=== PATIENT | female | born 1980 | race Caucasian/White ===

== ENCOUNTER 2016-08-09 23:20 | Emergency (ER) | payer SELFPAY ==
[~2016-08-09 23:20] MED LIST: BACTRIM DS TAB1 EACH PO; NORCO 5-325 TA1 EACH PO; PROAIR RESPICL90 MCG IH; ZOFRAN4 MG PO
--- NOTE | 2016-09-08 18:50 | ER ---
ADMIT: 08/09/2016 RM/LOC: ER [facility] MR#: [id number] [address] [address] [address] [place] [id number] Emergency Room Report SEX: F AGE: 36 : 1980 DATE: 08/09/2016 ADDENDUM: This patient comes to the ER because she has asthma and is having an asthma attack. She ran out of her albuterol inhaler. On physical exam, her O2 saturation is normal, but she does have wheezes and decreased air movement. She was given a DuoNeb treatment and a shot of Decadron which did make her feel better. I wrote a prescription for albuterol and prednisone. She is to quit smoking. Follow up with her primary as needed. Please see my T-sheet. JACINTO [place] / Veto Yancey MD / amanl JOB #: [id number] CC: Veto Yancey MD, Attending Physician Deniz Malave MD, Family Physician
== END 2016-08-10 00:20 | disposition home or self-care (01) ==
LOC: ER 23:20
DX: J45.901 Unspecified asthma with (acute) exacerbation (principal); F17.210 Nicotine dependence, cigarettes, uncomplicated; J44.9 Chronic obstructive pulmonary disease, unspecified; Z90.49 Acquired absence of other specified parts of digestive tract; Z90.721 Acquired absence of ovaries, unilateral